=== PATIENT | male | born 1985 | race African-American/Black ===

== ENCOUNTER 2017-04-14 10:13 | Emergency (ER) | payer MEDICAID ==
[~2017-04-14] VITALS: Ht 188 cm; Wt 90.7 kg
[2017-04-14 10:13] VITALS: BP 132/86
== END 2017-04-14 10:50 | disposition home or self-care (01) ==
LOC: ER 10:16
DX: L03.90 Cellulitis, unspecified (principal); B95.62 Methicillin resistant Staphylococcus aureus infection as the cause of diseases classified elsewhere; F11.10 Opioid abuse, uncomplicated; F17.200 Nicotine dependence, unspecified, uncomplicated
CPT/HCPCS: 73590-TC; A4606; Z7610